=== PATIENT | female | born 1995 | race African-American/Black ===

== ENCOUNTER 2018-01-04 18:02 | Emergency (ER) | payer OTHER, MEDICAID ==
[~2018-01-04] VITALS: Ht 170.2 cm; Wt 72.6 kg
[2018-01-04 18:29] VITALS: BP 146/84
--- NOTE | 2018-01-04 18:35 | Emergency Room Report ---
History of Present Illness General Chief Complaint: Upper Respiratory Illness Source: Patient Present Illness HPI 22-year-old female with no significant past medical history here complaining of 4 days of sore throat, congestion, cough with green sputum. Denies fever and chills, associated chest pain, ear pain, mentions that he has been taking an unknown antibiotic with no improvement. Denies nausea vomiting abdominal pain diarrhea constipation denies sick contacts Allergies: Coded Allergies: No Known Allergies (Unverified , 01/04/18) Patient History Past Medical History: see triage record Past Surgical History: unable to obtain Pertinent Family History: none Now: No Immunizations: UTD Reviewed Nursing Documentation: PMH: Agreed; PSxH: Agreed Nursing Documentation-PMH Past Medical History: No Stated History Review of Systems All Other Systems: negative except mentioned in HPI Physical Exam Vital Signs Date Time Temp Pulse Resp B/P (MAP) Pulse Ox O2 Delivery O2 Flow Rate FiO2 01/04/18 18:16 99.3 88 18 146/84 97 Room Air Sp02 EP Interpretation: reviewed, normal General Appearance: normal inspection, well appearing, no apparent distress, alert, non-toxic Head: normocephalic Eyes: bilateral eye normal inspection, bilateral eye PERRL ENT: normal ENT inspection, hearing grossly normal, no angioedema, uvula midline, nasal congestion, tonsillar exudate Neck: normal inspection, full range of motion, supple Respiratory: normal inspection, chest non-tender, lungs clear, no rhonchi, no wheezing Cardiovascular #1: normal inspection, normal peripheral pulses, no edema, no murmur Gastrointestinal: normal inspection, soft Rectal: deferred Genitourinary: deferred Musculoskeletal: normal inspection, back normal Neurologic: normal inspection, alert, oriented x3 Psychiatric: normal inspection, judgement/insight normal, memory normal Skin: normal inspection, normal color, no rash, warm/dry Lymphatic: normal inspection, no adenopathy Medical Decision Making PA Attestation all diagnosis and treatment plans were reviewed and discussed with supervising physician Dr. Pineda Diagnostic Impression: Primary Impression: Strep pharyngitis Additional Impression: Upper respiratory infection ER Course 22-year-old female with no significant past medical history here complaining of 4 days of sore throat, congestion, cough with green sputum. Denies fever and chills, associated chest pain, ear pain, mentions that he has been taking an unknown antibiotic with no improvement. Denies nausea vomiting abdominal pain diarrhea constipation denies sick contacts Ddx considered but are not limited to URI, strep pharyngitis, tonsillitis Vital signs: are WNL, pt. is afebrile H&PE are most consistent with strep pharyngitis ORDERS: amoxicillin, promethazine, ibuprofen ED INTERVENTIONS: None required at this time. DISCHARGE: At this time pt. is stable for d/c to home. Will provide printed patient care instructions, and any necessary prescriptions. Care plan and follow up instructions have been discussed with the patient prior to discharge. patient asks for medication and fluids form, rest, hydrate, Last Vital Signs Date Time Temp Pulse Resp B/P (MAP) Pulse Ox O2 Delivery O2 Flow Rate FiO2 01/04/18 18:29 88 18 Room Air 01/04/18 18:29 99.3 146/84 97 Disposition: HOME, SELF-CARE Condition: Stable Scripts Promethazine Hcl (PROMETHAZINE HCL*) 6.25 Mg/5 Ml Syrup 5 ML ORAL Q6H, #120 ML 0 Refills Prov: Kenisha Brown 01/04/18 Amoxicillin* (AMOXICILLIN*) 250 Mg/5 Ml Susp.recon 10 ML ORAL EVERY 8 HOURS for 7 Days, #210 ML Prov: Kenisha Brown 01/04/18 Patient Instructions: Strep Throat, Upper Respiratory Infection, Adult Additional Instructions: take medication as directed, rest hydrate avoid eating spicy and acidic food Kenisha Brown Jan 04, 2018 18:35
[2018-01-04] MEDS ORDERED: AMOXICILLIN500 MG ORAL (18:37)
[2018-01-04] MEDS ORDERED: TESSALON PERLE100 MG ORAL (18:37)
[2018-01-04] MEDS ORDERED: PROMETHAZI6.25 MG/1 ORAL (18:53)
[2018-01-04] MEDS ORDERED: AMOXICILLI250 MG/5 M ORAL (18:53)
[2018-01-04 19:06] VITALS: BP 142/82
== END 2018-01-04 20:09 | disposition home or self-care (01) ==
LOC: EMR 18:33
DX: J02.0 Streptococcal pharyngitis (principal)
CPT/HCPCS: 99283

== ENCOUNTER 2018-05-03 12:04 | Emergency (ER) | payer OTHER, MEDICAID ==
[~2018-05-03] VITALS: Ht 170.2 cm; Wt 68.0 kg
[~2018-05-03 12:04] MED LIST: AMOXICILLI250 MG/5 M ORAL; AMOXICILLIN500 MG ORAL; PROMETHAZI6.25 MG/1 ORAL; TESSALON PERLE100 MG ORAL
[2018-05-03 12:07] VITALS: BP 98/51
[2018-05-03] MEDS ORDERED: NKM (12:11)
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
[2018-05-03] MEDS ORDERED: ROBAXIN500 MG PO (12:58)
[2018-05-03] MEDS ORDERED: NAPROXEN500 M2 ORAL (12:58)
[2018-05-03 13:18] VITALS: BP 130/81
--- NOTE | 2018-05-03 13:19 | NUR ---
ER DISCHARGE NOTE: Patient is cleared to be discharged per ERMD, pt is aox4, on room air, with stable vital signs. pt was given dc and prescription instructions, pt was able to verbalize understanding, pt id band removed. pt is able to ambulate with steady gait. pt took all belongings.
== END 2018-05-03 13:15 | disposition home or self-care (01) ==
LOC: EMR 12:20
DX: S16.1XXA Strain of muscle, fascia and tendon at neck level, initial encounter (principal); S39.012A Strain of muscle, fascia and tendon of lower back, initial encounter; V49.50XA Passenger injured in collision with unspecified motor vehicles in traffic accident, initial encounter; Y92.410 Unspecified street and highway as the place of occurrence of the external cause
CPT/HCPCS: 99282